=== PATIENT | male | born 1935 | race Caucasian/White ===

== ENCOUNTER 2017-12-31 08:40 | Observation (INO) | payer OTHER ==
[2017-12-31 09:42] LABS: ADD MAN DIFF? NO
[2017-12-31 09:48] LABS: BASOPHILS % 0.4 % (0.0-2.0); EOSINOPHILS # 0.3 10^3/ul (0.0-0.5); EOSINOPHILS % 4.1 % (0.0-7.0); HEMOGLOBIN 14.3 g/dl (14.0-18.0); LYMPHOCYTES # 2.2 10^3/ul (0.8-2.9); LYMPHOCYTES % 31.8 % (15.0-51.0); MEAN CORPUSCULAR HEMOGLOBIN 31.2 pg (29.0-33.0); MEAN CORPUSCULAR HGB CONC 33.3 g/dl (32.0-37.0); MEAN CORPUSCULAR VOLUME 93.9 fl (82.0-101.0); MEAN PLATELET VOLUME 10.2 fl (7.4-10.4); MONOCYTE # 0.7 10^3/ul (0.3-0.9); MONOCYTES % 9.2 % (0.0-11.0); NEUTROPHIL # 3.8 10^3/ul (1.6-7.5); NEUTROPHILS % 54.2 % (39.0-77.0); PLATELET COUNT 193 10^3/UL (140-415); RED BLOOD COUNT 4.58 10^6/ul (4.70-6.10); RED CELL DISTRIBUTION WIDTH 12.9 % (11.5-14.5)
[2017-12-31 09:48] LABS: WHITE BLOOD COUNT 7.1 10^3/ul (4.8-10.8)
[2017-12-31] MEDS ORDERED: LIDOCAINE 1%/EPI 30 ML INJ (10:01)
[2017-12-31] MEDS ORDERED: IODIXANOL LOCM 50 ML BTL (10:01)
[2017-12-31] MEDS ORDERED: CEFAZOLIN 1 GM/50 ML (PMX) 100 ML IVPB (10:01)
[2017-12-31] MEDS ORDERED: SOD CHLORIDE 0.9% 1,000 ML (10:01)
[2017-12-31 10:05] LABS: INR 0.98; PROTIME 13.1 Sec (11.9-14.9)
[2017-12-31 10:06] LABS: PARTIAL THROMBOPLASTIN TIME 28.6 Sec (23.0-35.0)
[2017-12-31 10:09] LABS: ANION GAP 11 (5-13); BLOOD UREA NITROGEN 28 mg/dl (7-20); CALCIUM 8.8 mg/dl (8.4-10.2); CARBON DIOXIDE 24 mmol/L (21-31); CHLORIDE 108 mmol/L (97-110); CHOL/HDL RATIO 4.3 RATIO; CHOLESTEROL 166 mg/dl (100-200); CREATININE 0.88 mg/dl (0.61-1.24); GLUCOSE 96 mg/dl (70-220); HDL CHOLESTEROL 38 mg/dl (31-75); LDL CHOLESTEROL,CALCULATED 109 mg/dl; POTASSIUM 4.2 mmol/L (3.5-5.1); SODIUM 143 mmol/L (135-144); TRIGLYCERIDES 97 mg/dl (0-149)
[2017-12-31] MEDS ORDERED: FENTAnyl 50 MCG/ML VIAL (10:28)
[2017-12-31] MEDS ORDERED: MIDAZOLAM 1 MG/ML 2 ML INJ ×2 (10:29)
[2017-12-31] MEDS ORDERED: PROPOFOL 20 ML (10:29)
[2017-12-31] MEDS ORDERED: LIDOCAINE 2% (SDV) 5 ML INJ (10:29)
[2017-12-31] MEDS: CEFAZOLIN 1 GM/50 ML (PMX) 50 ML IVPB ×2 (10:30→17:05)
[2017-12-31] MEDS: SOD CHLORIDE 0.45% 1,000 ML IV (10:30)
[2017-12-31] MEDS: DIAZEPAM 5 MG TAB PO (10:30)
[2017-12-31] MEDS: POLYMYXIN/BACITRACIN 1L IRRIG IRR (10:30)
[2017-12-31] MEDS ORDERED: LIDOCAINE 2% (MDV) 20 ML INJ (10:31)
[2017-12-31] MEDS ORDERED: BUPIVACAINE 0.5% (SDV) 30 ML INJ (10:31)
[2017-12-31] MEDS ORDERED: hydrALAzine 20 MG INJ IV ×2 (11:30→15:30)
[2017-12-31] MEDS ORDERED: DIPHENHYDRAMINE 50 MG INJ IV (11:30)
[2017-12-31] MEDS ORDERED: MEPERIDINE 25 MG INJ IV (11:30)
[2017-12-31] MEDS ORDERED: LABETALOL HCL 20MG INJ IV (11:30)
[2017-12-31] MEDS ORDERED: morphine (1 MG/ML) 10ML SYRINGE IV ×2 (11:30)
[2017-12-31] MEDS ORDERED: OXYCODONE/ACETAMINOPHEN (5/325) TAB PO ×2 (11:30)
[2017-12-31] MEDS ORDERED: EPHEDrine SULFATE 50 MG/5 ML SYG IV (11:30)
[2017-12-31] MEDS ORDERED: FENTAnyl 50 MCG/ML VIAL IV ×2 (11:30)
[2017-12-31] MEDS ORDERED: ONDANSETRON 4 MG INJ IV ×2 (11:30→15:30)
[2017-12-31] MEDS ORDERED: morphine 2 MG INJ IV (12:00)
[2017-12-31] MEDS ORDERED: CEFAZOLIN 1 GM INJ IVPB (14:00)
[2017-12-31] MEDS ORDERED: DOCUSATE SODIUM 100 MG CAP PO (15:30)
[2017-12-31] MEDS ORDERED: ACETAMINOPHEN 325 MG TAB PO (15:30)
[2017-12-31] MEDS ORDERED: HYDROCODONE/APAP (5/325) TAB PO (15:30)
[2017-12-31] MEDS ORDERED: NACL 0.9% 3 ML SYG IV (15:30)
[2017-12-31] MEDS: NIFEdipine (XL) 30 MG TAB PO (17:03)
[2018-01-01] MEDS: CEFAZOLIN 1 GM/50 ML (PMX) 50 ML IVPB ×2 (02:12→09:01)
[2018-01-01 06:03] LABS: ADD MAN DIFF? NO
[2018-01-01 06:16] LABS: BASOPHILS % 0.5 % (0.0-2.0); EOSINOPHILS # 0.3 10^3/ul (0.0-0.5); HEMATOCRIT 38.9 % (42.0-52.0); HEMOGLOBIN 13.2 g/dl (14.0-18.0); LYMPHOCYTES # 2.5 10^3/ul (0.8-2.9); LYMPHOCYTES % 30.7 % (15.0-51.0); MEAN CORPUSCULAR HEMOGLOBIN 31.5 pg (29.0-33.0); MEAN CORPUSCULAR HGB CONC 33.9 g/dl (32.0-37.0); MEAN CORPUSCULAR VOLUME 92.8 fl (82.0-101.0); MEAN PLATELET VOLUME 10.6 fl (7.4-10.4); MONOCYTE # 0.8 10^3/ul (0.3-0.9); MONOCYTES % 9.8 % (0.0-11.0); NEUTROPHIL # 4.5 10^3/ul (1.6-7.5); NEUTROPHILS % 54.8 % (39.0-77.0); PLATELET COUNT 179 10^3/UL (140-415); RED BLOOD COUNT 4.19 10^6/ul (4.70-6.10); RED CELL DISTRIBUTION WIDTH 12.8 % (11.5-14.5)
[2018-01-01 06:16] LABS: WHITE BLOOD COUNT 8.2 10^3/ul (4.8-10.8)
[2018-01-01 07:04] LABS: ANION GAP 9 (5-13); BLOOD UREA NITROGEN 21 mg/dl (7-20); CALCIUM 8.3 mg/dl (8.4-10.2); CARBON DIOXIDE 27 mmol/L (21-31); CHLORIDE 105 mmol/L (97-110); CHOL/HDL RATIO 4.8 RATIO; CHOLESTEROL 145 mg/dl (100-200); CREATININE 0.88 mg/dl (0.61-1.24); GLUCOSE 92 mg/dl (70-220); HDL CHOLESTEROL 30 mg/dl (31-75); LDL CHOLESTEROL,CALCULATED 92 mg/dl; MAGNESIUM 1.8 mg/dl (1.7-2.5); POTASSIUM 4.4 mmol/L (3.5-5.1); SODIUM 141 mmol/L (135-144); TRIGLYCERIDES 114 mg/dl (0-149)
[2018-01-01] MEDS: NIFEdipine (XL) 30 MG TAB PO (08:59)
[2018-01-01 09:04] LABS: HEMOGLOBIN A1C 5.3 % (0-5.9)
== END 2018-01-01 15:50 | disposition home or self-care (01) ==
LOC: SDS 08:40 → 6WM 15:39 → SDS 15:24 → 6WM 15:24
DX: R00.1 Bradycardia, unspecified (principal); I10 Essential (primary) hypertension
CPT/HCPCS: 33207; 71045; 80048; 80061; 82962; 83036; 83735; 85025; 85610; 85730; 93005; G0378